=== PATIENT | female | born 1945 | race Caucasian/White ===

== ENCOUNTER 2020-06-26 14:14 | Inpatient (IN) | payer MEDICARE, OTHER ==
[~2020-06-26] VITALS: Ht 167.6 cm; Wt 55.8 kg
--- NOTE | 2020-06-26 14:25 | NUR ---
JESSICAMary [id number] From Home "Had vascular surgery in [place] 4days ago pain worse. Patient a/ox4, breathing even and unlabored, no sob noted. Patient c/o severe left leg pain. Attached to the security monitor.
--- NOTE | 2020-06-26 14:28 | NUR ---
DR. HITCHCOCK AT BEDSIDE
[2020-06-26] MEDS ORDERED: IV NS 0.9% 1,000 ML IV ONE (14:30)
[2020-06-26] MEDS ORDERED: MORPHINE SULFATE INJ 2 MG/ML DISP.SYRIN IV ONE ×2 (14:30→15:30)
[2020-06-26] MEDS ORDERED: ONDANSETRON HCL/PF 4 MG/2 ML VIAL IV ONE (14:30)
[2020-06-26] MEDS ORDERED: MORPHINE SULFATE INJ 4 MG/ML DISP.SYRIN ONE (14:40)
[2020-06-26] MEDS ORDERED: ONDANSETRON HCL/PF 4 MG/2 ML VIAL ONE (14:40)
[2020-06-26 14:53] LABS: BASOPHILS % (AUTO) 0.9 % (0.0-2.0); EOSINOPHILS % (AUTO) 0.2 % (0.0-6.0); HEMATOCRIT 35 % (33-45); HEMOGLOBIN 11.7 g/dL (11.5-14.8); LYMPHOCYTES # (AUTO) 1.4 /CMM (0.8-4.8); MEAN CORPUSCULAR HGB CONC 34 g/dl (31.0-36.0); MEAN CORPUSCULAR VOLUME 96 fL (82-100); MONOCYTES # (AUTO) 0.4 /CMM (0.1-1.30); MONOCYTES % (AUTO) 8.2 % (2.0-12.0); NEUTROPHILS # (AUTO) 3.6 /CMM (1.8-8.9); NEUTROPHILS % (AUTO) 65.7 % (43.0-81.0); PLATELET COUNT (AUTO) 589 /CMM (150-450); WHITE BLOOD COUNT (AUTO) 5.4 K/uL (4.3-11.0)
[2020-06-26 15:00] LABS: CALCIUM, SERUM 9.4 mg/dL (8.5-10.1); CREATININE 0.8 mg/dL (0.6-1.3); POTASSIUM 3.3 mmol/L (3.5-5.1)
[2020-06-26] MEDS ORDERED: MORPHINE SULFATE INJ 2 MG/ML DISP.SYRIN ONE (15:23)
--- NOTE | 2020-06-26 15:43 | NUR ---
PAGED [facility].
--- NOTE | 2020-06-26 15:50 | NUR ---
US TECH AT BEDSIDE
[2020-06-26] MEDS ORDERED: HYDR25TA4 PO (15:58)
[2020-06-26] MEDS ORDERED: LOSA50TA39 PO (15:58)
[2020-06-26] MEDS ORDERED: CHOL100040 PO (15:58)
[2020-06-26] MEDS ORDERED: HYDR2TAB7 PO (15:58)
[2020-06-26] MEDS ORDERED: CLON0.5T4 PO (15:58)
[2020-06-26] MEDS ORDERED: METO-358 PO (15:58)
[2020-06-26] MEDS ORDERED: ZOLP10TA2 PO (15:58)
[2020-06-26] MEDS ORDERED: HYDR-3972 PO (15:59)
[2020-06-26] MEDS ORDERED: ASPI-1420 PO (16:05)
[2020-06-26] MEDS ORDERED: APIX5TAB PO (16:05)
--- NOTE | 2020-06-26 16:22 | NUR ---
NURSING SUP GAVE M/S BED 311-1.
[2020-06-26] MEDS ORDERED: ACETAMINOPHEN 325 MG TABLET PO PRN (16:30)
[2020-06-26] MEDS ORDERED: clonazePAM 0.5 MG TABLET PO PRN (16:30)
[2020-06-26] MEDS ORDERED: ZOLPIDEM TARTRATE 10 MG TABLET PO PRN (16:30)
[2020-06-26] MEDS ORDERED: MAGNESIUM HYDROXIDE 30 ML UDC PO PRN (16:30)
[2020-06-26] MEDS ORDERED: HYDROMORPHONE HCL 2 MG TABLET PO PRN (16:30)
[2020-06-26] MEDS ORDERED: ONDANSETRON HCL/PF 4 MG/2 ML VIAL IVP PRN (16:30)
[2020-06-26] MEDS ORDERED: MAG HYDROX/AL HYDROX/SIMETH 30 ML UDC PO PRN (16:30)
--- NOTE | 2020-06-26 16:34 | NUR ---
REPORT GIVEN TO JOSE HAN FOR CHELLE.
--- NOTE | 2020-06-26 16:37 | NUR ---
PATIENT TRANSFERRED TO ROOM 311 IN STABLE CONDITION. NO DISTRESS NOTED.
[2020-06-26] MEDS: HYDROMORPHONE INJ 2 MG/ML DISP.SYRIN IV PRN ×2 (17:37→21:41)
[2020-06-26] MEDS: APIXABAN 5 MG TABLET PO SCH (17:38)
--- NOTE | 2020-06-26 18:42 | NUR ---
rn notes patient remains on room air, no sob noted, patient s/p vascular surgery [facility] 4 days ago. 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 L FA 20 present. Patient saying that she in pain. Elevated the affected extremity. Bed at the lowest setting, call light within reach, side rails up x2. Potassium low but MD was aware and has no new orders.
[2020-06-26] MEDS ORDERED: CLONIDINE HCL 0.1 MG TABLET PO PRN (19:00)
[2020-06-26] MEDS ORDERED: POTASSIUM CHLORIDE 20 MEQ TAB.PRT.SR PO ONE (19:00)
--- NOTE | 2020-06-26 19:10 | NUR ---
tele grout sewer line repairer notes received pt in bed awake and able to make needs known. pt a/ox 3. respirations even and unlabored with no s/s of acute distress or sob noted. patient s/p vascular surgery LLE 4 days ago. no complaints of pain at this time. pt noted with lfa #20g patent and intact and sl. safety measures in place with bed in lowest locked position with side rails up x2. call light within reach. will continue to monitor.
--- NOTE | 2020-06-26 19:30 | NUR ---
ASSISTED LIVING DIRECTOR NOTES PT NOTED WITH LFOOT COLD TO TOUCH. MD AWARE, NO NEW ORDERS. WILL CONTINUE TO MONITOR.
[2020-06-26 20:43] VITALS: BP 151/74
[2020-06-27 00:08] VITALS: BP 144/75
[2020-06-27] MEDS: HYDROMORPHONE INJ 2 MG/ML DISP.SYRIN IV PRN ×3 (02:12→11:39)
[2020-06-27 04:44] VITALS: BP 137/95
[2020-06-27 04:49] VITALS: BP 137/95
--- NOTE | 2020-06-27 07:07 | NUR ---
telephone diaphragm assembler notes pt in bed awake and able to make needs known. pt a/ox 3. respirations even and unlabored with no s/s of acute distress or sob noted throughout shift. no complaints of pain at this time. pt noted with lfa #20g patent and intact and sl. safety measures in place with bed in lowest locked position with side rails up x2. call light within reach. will endorse to oncoming nurse for armani.
[2020-06-27 07:36] LABS: BASOPHILS % (AUTO) 1.1 % (0.0-2.0); EOSINOPHILS % (AUTO) 0.5 % (0.0-6.0); HEMATOCRIT 32 % (33-45); HEMOGLOBIN 10.6 g/dL (11.5-14.8); LYMPHOCYTES # (AUTO) 1.4 /CMM (0.8-4.8); MEAN CORPUSCULAR HGB CONC 33 g/dl (31.0-36.0); MEAN CORPUSCULAR VOLUME 97 fL (82-100); MONOCYTES # (AUTO) 0.4 /CMM (0.1-1.30); MONOCYTES % (AUTO) 10.8 % (2.0-12.0); NEUTROPHILS # (AUTO) 1.7 /CMM (1.8-8.9); NEUTROPHILS % (AUTO) 47.6 % (43.0-81.0); PLATELET COUNT (AUTO) 480 /CMM (150-450); RED BLOOD CELL COUNT(AUTO) 3.33 MIL/uL (4.0-5.2); WHITE BLOOD COUNT (AUTO) 3.6 K/uL (4.3-11.0)
[2020-06-27 07:44] LABS: CALCIUM, SERUM 9.1 mg/dL (8.5-10.1); CREATININE 0.7 mg/dL (0.6-1.3); MAGNESIUM 2.1 mg/dL (1.8-2.4); PHOSPHORUS 4.1 mg/dL (2.5-4.9); POTASSIUM 4.1 mmol/L (3.5-5.1)
--- NOTE | 2020-06-27 07:55 | NUR ---
tele clinical coordinator: md visit seen and examined by dr. cunha and discussed d'c planning to acute rehab; also informed her no surgery needed per her vascular surgeon at [facility]. pt agreed with plan of care. wound consult ordered. pt having breakfast. instructed to call for assistance. will continue to monitor. Addendum: 06/27/20 at 1833 by SAM STANFORD SOLUTION COORDINATOR correction on above charting. per dr. cunha, pt will need bypass at some point. pt verbalized understanding.
[2020-06-27 08:22] VITALS: BP 135/74
[2020-06-27] MEDS: LOSARTAN POTASSIUM 50 MG TABLET PO SCH (08:58)
[2020-06-27] MEDS: METOPROLOL SUCCINATE 50 MG TAB.SR.24H PO SCH (08:58)
[2020-06-27] MEDS: ASPIRIN EC 81 MG TABLET.DR PO SCH (08:58)
[2020-06-27] MEDS: HYDROCHLOROTHIAZIDE 25 MG TABLET PO SCH (08:58)
[2020-06-27] MEDS: APIXABAN 5 MG TABLET PO SCH ×2 (08:59→16:59)
--- NOTE | 2020-06-27 09:22 | NUR ---
WOUND CARE CONSULT: PT PRESENTS WITH LEFT LATERAL LOWER LEG OPEN FASCIOTOMY SURGICAL SITE WITH SILVER FOAM DRESSING IN PLACE AND LEFT MEDIAL LOWER LEG CLOSED INCISION WITH SUTURES, PRESENT ON ADMISSION. RECOMMENDATIONS MADE FOR WOUND CARE AND SKIN PROTECTION. DISCUSSED WITH NURSING STAFF. PT IS INDEPENDENT WITH BED MOBILITY AND IS CONTINENT. PT STATES WILL FOLLOW UP WITH HER VASCULAR SURGEON. WILL SEE PRN. CHAVEZ IN AGREEMENT WITH PLAN OF CARE. Addendum: 06/27/20 at 0928 by ISABEL MORGAN WNDNU Amended: Links added.
--- NOTE | 2020-06-27 11:39 | NUR ---
tele lockstitch binder: notes pt c/o 08/09 left leg pain, medicated with dilaudid 2mg ivp by rn. instructed to call for assistance.
--- NOTE | 2020-06-27 12:09 | NUR ---
tele broadcast meteorologist: notes pt verbalized relief of pain, instructed to call for assistance. will continue to monitor.
--- NOTE | 2020-06-27 13:00 | NUR ---
tele emergency room registered nurse: pain management consult seen by dr. alvarez with orders. orders acknowledged.
[2020-06-27] MEDS: METHOCARBAMOL (500MG) 500 MG TABLET PO SCH ×2 (13:38→20:44)
[2020-06-27] MEDS: oxyCODONE/APAP (5/325 MG) 1 UDTAB TABLET PO PRN (15:16)
--- NOTE | 2020-06-27 15:16 | NUR ---
tele media planner: notes c/o 06/09 left leg pain, medicated with percocet 1 tab po as ordered. instructed to call for assistance. will monitor.
--- NOTE | 2020-06-27 16:16 | NUR ---
tele fuselage framer: notes pt verbalized relief of pain. call light within reach. will monitor.
[2020-06-27] MEDS: HYDROMORPHONE 1 MG/1 ML DISP.SYRIN IV PRN ×2 (17:08→23:01)
--- NOTE | 2020-06-27 17:08 | NUR ---
tele developer automatic: notes c/o 06/09 left leg pain, medicated with dilaudid 1mg ivp by rn. pt still refusing linen change and care per barrel marker. instructed to call for assistance.
[2020-06-27 17:33] VITALS: BP 123/65
--- NOTE | 2020-06-27 18:08 | NUR ---
tele assistant spa manager: notes resting comfortable in bed. needs attended. no distress noted. call light within reach.
--- NOTE | 2020-06-27 19:10 | NUR ---
telephone answerer notes received pt in bed awake and able to make needs known. pt a/ox 3. respirations even and unlabored with no s/s of acute distress or sob noted. no complaints of pain at this time. pt noted with lfa #20g patent and intact and sl. safety measures in place with bed in lowest locked position with side rails up x2. call light within reach. will continue to monitor.
--- NOTE | 2020-06-27 19:10 | NUR ---
tele channel lip stiffener insoles: notes report given to khloe (renzo) for continuity of care.
[2020-06-27 20:00] VITALS: BP 109/58
[2020-06-28 00:15] VITALS: BP 112/59
[2020-06-28] MEDS: oxyCODONE/APAP (5/325 MG) 1 UDTAB TABLET PO PRN ×2 (00:50→17:19)
--- NOTE | 2020-06-28 02:11 | NUR ---
VIDEO PRODUCER NOTES PT COMPLAINING OF LEG PAIN. PERCOCET GIVEN IT IS TOO EARLY FOR DILAUDID. AFTER 1 HOUR PT STATED THAT IT DID NOT HELP. MADE AWARE. NEW ORDER FOR DILAUDID 1MG X1 NOW. WILL CONTINUE TO MONITOR.
[2020-06-28] MEDS ORDERED: HYDROMORPHONE 1 MG/1 ML DISP.SYRIN IV ONE (02:30)
[2020-06-28 04:00] VITALS: BP 129/50
[2020-06-28] MEDS: METHOCARBAMOL (500MG) 500 MG TABLET PO SCH ×3 (05:55→20:43)
--- NOTE | 2020-06-28 07:41 | NUR ---
cable television program director notes pt in bed awake and able to make needs known. pt a/ox 3. respirations even and unlabored with no s/s of acute distress or sob noted throughout shift. no complaints of pain at this time. pt noted with lfa #20g patent and intact and sl. safety measures in place with bed in lowest locked position with side rails up x2. call light within reach. will endorse to oncoming nurse for armani.
--- NOTE | 2020-06-28 07:43 | NUR ---
LANDSCAPE ACCOUNT MANAGER OPENING NOTES Received pt in bed awake. Alert oriented x3, able to make needs known. On room air, with respirations even and unlabored and no s/s of acute distress or sob noted. No complaints of pain at this time. On tele monitoring with current reading of SR and HR on the 70s, with no complain of cardiac distress at this time. Left forearm #20g SL patent and intact. Safety measures in place with bed in lowest locked position with side rails up x2. Call light within reach. will continue to monitor.
[2020-06-28] MEDS: LOSARTAN POTASSIUM 50 MG TABLET PO SCH (09:27)
[2020-06-28] MEDS: HYDROCHLOROTHIAZIDE 25 MG TABLET PO SCH (09:28)
[2020-06-28] MEDS: METOPROLOL SUCCINATE 50 MG TAB.SR.24H PO SCH (09:28)
[2020-06-28] MEDS: ASPIRIN EC 81 MG TABLET.DR PO SCH (09:31)
[2020-06-28] MEDS: APIXABAN 5 MG TABLET PO SCH ×2 (09:31→16:10)
[2020-06-28] MEDS: HYDROMORPHONE 1 MG/1 ML DISP.SYRIN IV PRN ×3 (11:23→18:09)
--- NOTE | 2020-06-28 11:26 | NUR ---
RN NOTES/PAIN MANAGEMENT PT C/O SHARP AND TIGHTNESS PAIN ON LOWER LEFT LEG WITH SCALE OF 8/10. PRN DILAUDID 1MG/1ML IVP ADMINISTERED AT 1123. WILL CONTINUE TO MONITOR AND REASSESS PT.
[2020-06-28 16:00] VITALS: BP 148/80
--- NOTE | 2020-06-28 18:41 | NUR ---
PHARMACIST IN CHARGE CLOSING NOTES Pt in bed awake and lying at moderate high backrest position. A/O x3, same able to make needs known. On room air, respirations even and unlabored, no sob noted during the day. Dressing on left lower leg c/d/i and elevated with pillows. On tele-monitoring with current reading of SR and HR on the 60-70s, no complaints of cardiac distress voiced. LFA #20g SL patent and intact. All needs and care attended well. Safety measures in place with bed in lowest locked position with side rails up x2. Call light within reach. Will endorse to hat maker nurse for armani.
--- NOTE | 2020-06-28 19:29 | NUR ---
BIOLOGICAL INSPECTOR OPENING NOTES PATIENT AWAKE IN BED. A/OX3; ABLE TO VERBALIZE NEEDS. NO S/S OF ACUTE RESPIRATORY DISTRESS; BREATHING IS EVEN AND UNLABORED. NO C/O PAIN AT THIS TIME. DRESSING PRESENT ON LEFT LOWER LEG; DRY AND INTACT. IV PRESENT ON LEFT FA, SIZE 20, INTACT & PATENT, HEP LOCKED. SAFETY MEASURES IN PLACE AND PATIENT'S NEEDS MET. BED LOCKED, ALARM ON, SIDE RAILS X2, HOB ELEVATED, LEFT LOWER LEG ELEVATED ON PILLOWS, CALL LIGHT WITHIN REACH. WILL CONTINUE TO MONITOR.
[2020-06-28 20:00] VITALS: BP 112/70
[2020-06-28 20:41] VITALS: BP 112/70
[2020-06-29] VITALS (7 sets, daily range): BP systolic 123–142; BP diastolic 69–82
[2020-06-29] MEDS: HYDROMORPHONE 1 MG/1 ML DISP.SYRIN IV PRN ×2 (00:10→06:10)
[2020-06-29] MEDS: METHOCARBAMOL (500MG) 500 MG TABLET PO SCH (05:18)
--- NOTE | 2020-06-29 06:34 | NUR ---
MARKET NEWS REPORTER CLOSING NOTES PATIENT SLEEPING IN BED. A/OX3. NO ADVERSE EVENTS DURING SHIFT. ON RA. NO S/S OF ACUTE RESPIRATORY DISTRESS; BREATHING IS EVEN AND UNLABORED. NO C/O PAIN AT THIS TIME. DRESSING PRESENT ON LEFT LOWER LEG REMAINS DRY AND INTACT. IV PRESENT ON LEFT FA, SIZE 20, INTACT & PATENT, HEP LOCKED. SAFETY MEASURES IN PLACE AND PATIENT'S NEEDS MET. BED LOCKED, ALARM ON, SIDE RAILS X2, HOB ELEVATED, LEFT LOWER LEG ELEVATED ON PILLOWS, CALL LIGHT WITHIN REACH. WILL ENDORSE TO DAY SHIFT RN PLAN OF CARE. Addendum: 06/29/20 at 0636 by GIDEON LEONARD RN TELE MONITOR READING NSR, HEART 69.
--- NOTE | 2020-06-29 07:30 | NUR ---
RN Opening Note Received patient in bed, AO x 4, able to responds all stimuli. Pt. having breakfast, does no c/o left leg pain at this time. Respiratory even and unlabored on room air, no distress observed. Skin is warm to touch, keep clean/dry, intact IV site with SL. Kept bed in locked with elevated HOB for ensure airway and aspiration precaution. Call light within reach, will continue to monitor.
[2020-06-29] MEDS: APIXABAN 5 MG TABLET PO SCH (08:46)
[2020-06-29] MEDS: METOPROLOL SUCCINATE 50 MG TAB.SR.24H PO SCH (08:48)
[2020-06-29] MEDS: ASPIRIN EC 81 MG TABLET.DR PO SCH (08:53)
[2020-06-29] MEDS: HYDROCHLOROTHIAZIDE 25 MG TABLET PO SCH (08:58)
[2020-06-29] MEDS: LOSARTAN POTASSIUM 50 MG TABLET PO SCH (08:59)
[2020-06-29] MEDS ORDERED: METH500T6 PO (10:09)
[2020-06-29] MEDS ORDERED: OXYC1TAB8 PO (10:09)
[2020-06-29] MEDS: oxyCODONE/APAP (5/325 MG) 1 UDTAB TABLET PO PRN (10:19)
[2020-06-29] MEDS ORDERED: HYDROMORPHONE 1 MG/1 ML DISP.SYRIN IV PRN (11:30)
--- NOTE | 2020-06-29 13:33 | NUR ---
Patient discharge to [facility] rehab, given report Leeanne RN include new meds, also given report RENZO Alejandro/EMT. Patient in stable condition, given Dilaudid around 1200 afternoon.
--- NOTE | 2020-07-04 18:41 | NUR ---
LAte entry for 06/29/20 Patient refused to take wound picture before d/c to rehab.
== END 2020-06-29 13:41 | DRG 948 ==
LOC: ER 14:23 → MED 16:26 → TELE 23:18
PROVIDERS: ADMIT Internal Medicine; ATTEND Internal Medicine
DX: G89.18 Other acute postprocedural pain (principal); I73.9 Peripheral vascular disease, unspecified; E87.6 Hypokalemia; F41.9 Anxiety disorder, unspecified; I10 Essential (primary) hypertension; I48.91 Unspecified atrial fibrillation; Z98.890 Other specified postprocedural states; M79.2 Neuralgia and neuritis, unspecified; Z79.01 Long term (current) use of anticoagulants; Z86.79 Personal history of other diseases of the circulatory system
CPT/HCPCS: 36415; 80048-TC; 83735-TC; 84100-TC; 85025-TC; 85610-TC; 87081-TC; 93926-TC; 93971-TC; 97116-TC; 97530-TC; A6253; C9803-CS; G0378; J1170; J2270; J2405; J7030